=== PATIENT | female | born 1975 | race Caucasian/White ===

== ENCOUNTER 2017-07-08 15:27 | Emergency (ER) | payer OTHER ==
[~2017-07-08] VITALS: Ht 154.9 cm; Wt 90.0 kg
[2017-07-08 16:20] LABS: BASOPHILS # (AUTO) 0.2 X10'3 (0-0.2); BASOPHILS % (AUTO) 1.5 % (0-1); EOSINOPHILS # (AUTO) 0.1 X10'3 (0-0.9); EOSINOPHILS % (AUTO) 0.9 % (0-6); HEMATOCRIT 42.3 % (35.0-45.0); HEMOGLOBIN 14.2 g/dl (12.0-16.0); LYMPHOCYTES % (AUTO) 19.5 % (21-51); MEAN CORPUSCULAR HEMOGLOBIN 29.3 PG (27.0-31.0); MEAN CORPUSCULAR HGB CONC 33.6 % (33.0-36.5); MEAN CORPUSCULAR VOLUME 87.1 FL (78-98); MEAN PLATELET VOLUME 8.2 FL (7.4-10.4); MONOCYTES # (AUTO) 0.6 X10'3 (0-0.9); NEUTROPHILS # (AUTO) 7.2 X10'3 (1.8-7.7); NEUTROPHILS % (AUTO) 72.1 % (42-75); PLATELET COUNT 259 X10'3 (140-440); RED BLOOD COUNT 4.86 X10'6 (4.20-5.60); RED CELL DISTRIBUTION WIDTH 13.7 % (11.5-14.5); WHITE BLOOD COUNT 10.1 X10'3 (4.5-11.0)
[2017-07-08 16:48] LABS: ALANINE AMINOTRANSFERASE 35 U/L (12-78); ALBUMIN 3.8 G/DL (3.4-5.0); ALKALINE PHOSPHATASE 66 IU/L (46-116); ANION GAP 10 (8-16); ASPARTATE AMINO TRANSFERASE 18 U/L (10-37); BILIRUBIN,TOTAL 0.4 MG/DL (0.1-1.0); BLOOD UREA NITROGEN 8 MG/DL (7-18); BUN/CREATININE RATIO 10.4 (6.6-38.0); CHLORIDE 104 MMOL/L (99-107); CREATININE 0.77 MG/DL (0.40-0.90); GLUCOSE 111 MG/DL (70-104); LIPASE 90 U/L (73-393); POTASSIUM 3.4 MMOL/L (3.5-5.1); SODIUM 140 MMOL/L (135-145); TOTAL CARBON DIOXIDE 25.8 MMOL/L (24-32); TOTAL PROTEIN 7.6 G/DL (6.4-8.2); eGFR 83 ML/MIN
[2017-07-08 17:35] VITALS: BP 170/121
== END 2017-07-08 17:44 | disposition home or self-care (01) ==
LOC: ER 15:28
DX: G47.9 Sleep disorder, unspecified (principal); I10 Essential (primary) hypertension; R11.0 Nausea; Z56.0 Unemployment, unspecified
CPT/HCPCS: 36415; 80053; 83690; 85025; 99284

== ENCOUNTER 2020-01-13 04:42 | Inpatient (IN) | payer MEDICAID, OTHER ==
[~2020-01-13] VITALS: Ht 149.9 cm; Wt 97.7 kg
[2020-01-13 05:50] LABS: ALANINE AMINOTRANSFERASE 38 U/L (12-78); ALBUMIN 3.2 G/DL (3.4-5.0); ALBUMIN/GLOBULIN RATIO 0.7 (1.1-1.5); ALKALINE PHOSPHATASE 84 IU/L (46-116); ANION GAP 12 (8-16); ASPARTATE AMINO TRANSFERASE 19 U/L (10-37); BILIRUBIN,TOTAL 0.1 MG/DL (0.1-1.0); BLOOD UREA NITROGEN 11 MG/DL (7-18); BUN/CREATININE RATIO 13.3 (6.6-38.0); CALCIUM 8.9 MG/DL (8.5-10.1); CHLORIDE 105 MMOL/L (99-107); CREATININE 0.83 MG/DL (0.40-0.90); GLUCOSE 205 MG/DL (70-104); POTASSIUM 3.4 MMOL/L (3.5-5.1); SODIUM 139 MMOL/L (135-145); TOTAL CARBON DIOXIDE 21.8 MMOL/L (24-32); TOTAL PROTEIN 7.5 G/DL (6.4-8.2); eGFR 75 ML/MIN
[2020-01-13 05:53] LABS: BASOPHILS # (AUTO) 0.1 X10'3 (0-0.2); BASOPHILS % (AUTO) 0.6 % (0-1); EOSINOPHILS # (AUTO) 0.1 X10'3 (0-0.9); EOSINOPHILS % (AUTO) 0.7 % (0-6); HEMATOCRIT 39.8 % (35.0-45.0); HEMOGLOBIN 13.1 g/dl (12.0-16.0); LYMPHOCYTES # (AUTO) 2.3 X10'3 (1.1-4.8); LYMPHOCYTES % (AUTO) 16.5 % (21-51); MEAN CORPUSCULAR HEMOGLOBIN 28.2 PG (27.0-31.0); MEAN CORPUSCULAR HGB CONC 32.9 g/dL (33.0-36.5); MEAN CORPUSCULAR VOLUME 85.6 FL (78-98); MEAN PLATELET VOLUME 9.6 FL (7.4-10.4); MONOCYTES # (AUTO) 0.4 X10'3 (0-0.9); MONOCYTES % (AUTO) 2.6 % (2-12); NEUTROPHILS # (AUTO) 11.2 X10'3 (1.8-7.7); NEUTROPHILS % (AUTO) 79.6 % (42-75); PLATELET COUNT 255 X10'3 (140-440); RED BLOOD COUNT 4.65 X10'6 (4.20-5.60); RED CELL DISTRIBUTION WIDTH 14.9 % (11.5-14.5); WHITE BLOOD COUNT 14.1 X10'3 (4.5-11.0)
--- NOTE | 2020-01-13 05:58 | NUR ---
Advised Dr. Welch of pt's blood pressure
[2020-01-13] MEDS ORDERED: nitroGLYCERIN 0.4mg/hour patch TD ONE (06:10)
[2020-01-13] MEDS: aspirin 81mg tab.chew PO ONE ×2 (06:19→07:08)
[2020-01-13] MEDS ORDERED: diltiazem-D5W 125mg/125ml 125 ML IV SCH (06:55)
--- NOTE | 2020-01-13 07:08 | NUR ---
pt crying and states, im scared because im so sick. i dont want to . informed dr. torres., please see new orders.
[2020-01-13] MEDS ORDERED: LORazepam 1 MG tablet PO ONE (07:10)
[2020-01-13] MEDS ORDERED: LORazepam 0.5 MG tablet PO ONE (07:20)
[2020-01-13] MEDS: nitroGLYCERIN-Tridil 50MG/D5W 250 ML IV SCH (08:07)
[2020-01-13] MEDS ORDERED: heparin 10,000 units/1 ML INJ IV ONE ×2 (09:10→09:20)
[2020-01-13] MEDS ORDERED: magnesium 4gm in 100ml NS 100 ML IV PRN (09:25)
[2020-01-13] MEDS ORDERED: morphine 2 MG/ML inj. syringe IV PRN ×2 (09:25)
[2020-01-13] MEDS ORDERED: acetaminophen 325mg tablet PO PRN ×2 (09:25)
[2020-01-13] MEDS ORDERED: potassium CL 10mEq/100ml bag 100 ML IV PRN ×2 (09:25)
[2020-01-13] MEDS ORDERED: diphenhydrAMINE 25mg capsule PO PRN (09:25)
[2020-01-13] MEDS ORDERED: mag hydrox/Alum hydrox/simeth 30ml oral suspension PO PRN (09:25)
[2020-01-13] MEDS ORDERED: magnesium Cl slow-release 64mg tablet PO PRN (09:25)
[2020-01-13] MEDS ORDERED: magnesium 2GM in 50ml NS 50 ML IV PRN (09:25)
[2020-01-13] MEDS ORDERED: HYDROcodone/acetaminophen 10/325mg tab PO PRN (09:25)
[2020-01-13] MEDS ORDERED: magnesium hydroxide 30ml (MOM) UD suspension PO PRN (09:25)
[2020-01-13] MEDS ORDERED: acetaminophen 650mg rectal suppository RC PRN (09:25)
[2020-01-13] MEDS ORDERED: potassium Cl 20 mEq SR tablet PO PRN (09:25)
[2020-01-13] MEDS ORDERED: ondansetron/PF 4mg/2ml inj IV PRN (09:25)
[2020-01-13] MEDS ORDERED: HYDROcodone/acetaminophen 5mg/325mg tablet PO PRN (09:25)
[2020-01-13] MEDS ORDERED: bisacodyl 10mg suppository rectal RC PRN (09:25)
[2020-01-13] MEDS: amLODIPine 5mg tablet PO SCH (09:30)
[2020-01-13] MEDS ORDERED: hydrALAZINE 20mg/ml inj. IV PRN (09:30)
[2020-01-13] MEDS ORDERED: hydrALAZINE 20mg/ml inj. IV ONE (09:30)
[2020-01-13] MEDS: heparin 25,000 UNIT/250ml bag 250 ML IV SCH ×2 (09:35→17:04)
[2020-01-13 09:43] LABS: BASOPHILS % (AUTO) 0.3 % (0-1); EOSINOPHILS % (AUTO) 0 % (0-6); HEMATOCRIT 40.4 % (35.0-45.0); HEMOGLOBIN 13.4 g/dl (12.0-16.0); LYMPHOCYTES # (AUTO) 1.2 X10'3 (1.1-4.8); LYMPHOCYTES % (AUTO) 9.4 % (21-51); MEAN CORPUSCULAR HEMOGLOBIN 28.5 PG (27.0-31.0); MEAN CORPUSCULAR HGB CONC 33.1 g/dL (33.0-36.5); MEAN CORPUSCULAR VOLUME 86.2 FL (78-98); MEAN PLATELET VOLUME 8.7 FL (7.4-10.4); MONOCYTES # (AUTO) 0.4 X10'3 (0-0.9); MONOCYTES % (AUTO) 3.4 % (2-12); NEUTROPHILS % (AUTO) 86.9 % (42-75); PLATELET COUNT 279 X10'3 (140-440); RED BLOOD COUNT 4.69 X10'6 (4.20-5.60); RED CELL DISTRIBUTION WIDTH 14.7 % (11.5-14.5); WHITE BLOOD COUNT 12.7 X10'3 (4.5-11.0)
[2020-01-13 09:54] LABS: PARTIAL THROMBOPLASTIN TIME 26 SECONDS (22-32)
--- NOTE | 2020-01-13 09:55 | NUR ---
PT AMBULATED TO BR VOIDED X1, TOLERATED WELL.
[2020-01-13 10:04] LABS: ETHANOL < 0.010 GM/DL (0.0-0.010)
[2020-01-13 10:06] LABS: HEMOGLOBIN A1C 6.3 % (4.5-6.2)
[2020-01-13] MEDS: normal saline 1000ml 1,000 ML IV SCH ×2 (10:20→23:21)
[2020-01-13 10:21] LABS: BETA HCG,QUANTITATIVE < 1.0 mIU/ml
[2020-01-13 10:25] LABS: CLARITY,URINE SLIGHTLY CLOUDY (Clear); COLOR,URINE STRAW (Yellow); GLUCOSE, URINE NEGATIVE (Neg); KETONES,URINE NEGATIVE (Neg); LEUKOCYTE ESTERASE ,URINE NEGATIVE (Neg); NITRITES, URINE NEGATIVE (Neg); OCCULT BLOOD,URINE NEGATIVE (Neg); PH,URINE 6.5 (4.8-8.0); PROTEIN,URINE NEGATIVE (Neg); UROBILINOGEN,URINE 0.2 E.U/dL (0.2-1.0)
[2020-01-13 10:28] LABS: URINE AMPHETAMINE SCREEN NEGATIVE (Neg); URINE BARBITUATE SCREEN NEGATIVE (Neg); URINE BENZODIAZEPINES SCREEN NEGATIVE (Neg); URINE CANNABINOID SCREEN POSITIVE (Neg); URINE COCAINE SCREEN NEGATIVE (Neg); URINE METHADONE SCREEN NEGATIVE (Neg); URINE OPIATE SCREEN NEGATIVE (Neg); URINE PHENCYCLIDINE SCREEN NEGATIVE (Neg)
[2020-01-13] MEDS ORDERED: iohexol 350MG/ML 100ml bottle IV ONE (10:31)
[2020-01-13 10:34] LABS: UA COLLECTION TYPE CLN CATCH MIDSTREAM
[2020-01-13 10:37] LABS: MUCUS STRANDS FEW /LPF (Neg); SQUAMOUS EPITHELIAL CELL,UR MANY /LPF (FEW)
[2020-01-13 10:44] LABS: BACTERIA,URINE 1+ /HPF (Neg); RBC,URINE 0-2 /HPF (0-2); WBC,URINE 0-4 /HPF (0-4)
--- NOTE | 2020-01-13 11:12 | NUR ---
back from ct scan in stable condition
[2020-01-13] MEDS: metoprolol succinate 25mg (24-HOUR) SR. Tablet PO SCH (11:43)
--- NOTE | 2020-01-13 12:29 | NUR ---
PT C/O HEREDIA AND SLIGHT CP MEDIAL CHEST. MS 2MG IV GIVEN
[2020-01-13] MEDS ORDERED: VENL100T4 PO (12:36)
[2020-01-13] MEDS ORDERED: OMEP40CA13 PO (12:36)
[2020-01-13] MEDS ORDERED: VALS40TA11 PO (12:36)
--- NOTE | 2020-01-13 15:39 | NUR ---
Patient in room ED 8. I have received report from Mary FRANCIS and had the opportunity to ask questions and assume patient care.
[2020-01-13 16:15] VITALS: BP 145/75
[2020-01-13] MEDS: heparin 10,000 units/1 ML INJ IV PRN (17:02)
--- NOTE | 2020-01-13 17:40 | NUR ---
Page Sent promotional table spacer PAGER ID: [phone] MESSAGE: Fredy Encarnacion. Critical lab 12 hour Trop 5.96. Fatmata [id number]
--- NOTE | 2020-01-13 17:48 | NUR ---
notified Dr. Gracia of critical trop through his answering service by request of Dr. Cooper.
[2020-01-13 18:00] VITALS: BP 150/90
--- NOTE | 2020-01-13 18:35 | NUR ---
Problems reprioritized. Patient report given, questions answered & plan of care reviewed with Katlyn FRANCIS.
--- NOTE | 2020-01-13 19:30 | NUR ---
Patient in room PCU 3014. I have received report from Fatmata FRANCIS and had the opportunity to ask questions and assume patient care.
[2020-01-13] MEDS ORDERED: atorvastatin 20mg tablet PO ONE (19:55)
[2020-01-13 20:00] VITALS: BP 197/116
[2020-01-13] MEDS: potassium Cl 20 mEq SR tablet PO PRN (20:45)
[2020-01-13] MEDS: venlafaxine 25mg tablet PO SCH (20:46)
[2020-01-13] MEDS: K and/or MAG REPLACEMENT MC SCH (20:46)
[2020-01-13 22:00] VITALS: BP 160/99
--- NOTE | 2020-01-13 22:50 | NUR ---
Patient in room PCU 3014. I have received report from Shi FRANCIS and had the opportunity to ask questions and assume patient care.
--- NOTE | 2020-01-13 23:08 | NUR ---
Problems reprioritized. Patient report given, questions answered & plan of care reviewed with Jozef FRANCIS.
[2020-01-14] VITALS (24 sets, daily range): BP systolic 138–225; BP diastolic 77–121
[2020-01-14] MEDS: potassium Cl 20 mEq SR tablet PO PRN (02:29)
--- NOTE | 2020-01-14 06:07 | NUR ---
Problems reprioritized. Patient report given, questions answered & plan of care reviewed with Koki FRANCIS.
[2020-01-14 06:19] LABS: BASOPHILS # (AUTO) 0.1 X10'3 (0-0.2); BASOPHILS % (AUTO) 0.8 % (0-1); EOSINOPHILS % (AUTO) 0.2 % (0-6); HEMOGLOBIN 12.3 g/dl (12.0-16.0); LYMPHOCYTES # (AUTO) 2.9 X10'3 (1.1-4.8); LYMPHOCYTES % (AUTO) 20.4 % (21-51); MEAN CORPUSCULAR HGB CONC 32.4 g/dL (33.0-36.5); MEAN CORPUSCULAR VOLUME 86.4 FL (78-98); MEAN PLATELET VOLUME 8.9 FL (7.4-10.4); MONOCYTES # (AUTO) 0.8 X10'3 (0-0.9); MONOCYTES % (AUTO) 5.8 % (2-12); NEUTROPHILS # (AUTO) 10.3 X10'3 (1.8-7.7); NEUTROPHILS % (AUTO) 72.8 % (42-75); PLATELET COUNT 263 X10'3 (140-440); RED CELL DISTRIBUTION WIDTH 14.6 % (11.5-14.5); WHITE BLOOD COUNT 14.1 X10'3 (4.5-11.0)
--- NOTE | 2020-01-14 06:39 | NUR ---
Patient in room PCU 3014. I have received report from TITO Haskins and had the opportunity to ask questions and assume patient care. Patient asleep in bed and in no acute distress.
[2020-01-14 06:47] LABS: ALANINE AMINOTRANSFERASE 33 U/L (12-78); ALBUMIN 3.2 G/DL (3.4-5.0); ALBUMIN/GLOBULIN RATIO 0.8 (1.1-1.5); ALKALINE PHOSPHATASE 74 IU/L (46-116); ANION GAP 11 (8-16); ASPARTATE AMINO TRANSFERASE 39 U/L (10-37); BILIRUBIN,TOTAL 0.3 MG/DL (0.1-1.0); BLOOD UREA NITROGEN 6 MG/DL (7-18); BUN/CREATININE RATIO 10.2 (6.6-38.0); CALCIUM 8.3 MG/DL (8.5-10.1); CHLORIDE 107 MMOL/L (99-107); CHOL/HDL RATIO 5.6 (0.00-4.99); CHOLESTEROL 218 MG/DL (0-200); CREATININE 0.59 MG/DL (0.40-0.90); GLUCOSE 121 MG/DL (70-104); HDL CHOLESTEROL 39 MG/DL (35-60); LDL CHOLESTEROL 154 MG/DL (50-100); PHOSPHORUS 2.9 MG/DL (2.3-4.5); POTASSIUM 3.9 MMOL/L (3.5-5.1); SODIUM 139 MMOL/L (135-145); TOTAL CARBON DIOXIDE 21.3 MMOL/L (24-32); TOTAL PROTEIN 7.4 G/DL (6.4-8.2); TRIGLYCERIDES 246 MG/DL (20-135); eGFR > 90 ML/MIN
[2020-01-14] MEDS: aspirin 81mg tablet.DR PO SCH (07:51)
[2020-01-14] MEDS: losartan 25mg tablet PO SCH (07:51)
[2020-01-14] MEDS: pantoprazole 40mg Tablet.DR PO SCH (07:52)
[2020-01-14] MEDS: amLODIPine 5mg tablet PO SCH (07:52)
[2020-01-14] MEDS: metoprolol succinate 25mg (24-HOUR) SR. Tablet PO SCH (07:53)
[2020-01-14] MEDS: atorvastatin 20mg tablet PO SCH (07:54)
[2020-01-14] MEDS: K and/or MAG REPLACEMENT MC SCH ×2 (07:55→20:00)
[2020-01-14] MEDS: venlafaxine 25mg tablet PO SCH ×2 (07:55→21:33)
[2020-01-14] MEDS: normal saline 1000ml 1,000 ML IV SCH ×2 (12:05→23:46)
[2020-01-14] MEDS ORDERED: fentaNYL/PF 50MCG/1 ML 2ML syringe ONE (12:25)
[2020-01-14] MEDS ORDERED: nitroGLYCERIN-Tridil 50MG/D5W 250 ML IV ONE (12:25)
[2020-01-14] MEDS ORDERED: verapamil 2.5 mg/ml inj IV ONE (12:25)
[2020-01-14] MEDS ORDERED: iohexol 350 MG/ML 50ML vial IV ONE ×2 (12:25→15:12)
[2020-01-14] MEDS ORDERED: midazolam 2 mg/2 ml injection ONE ×2 (12:25→14:45)
[2020-01-14] MEDS ORDERED: LIDOcaine 1% (10mg/ml)w/preservative injection 20ml MDV ONE (12:25)
[2020-01-14] MEDS ORDERED: heparin 1,000unit/ml 10ml vial 10 ML ONE (12:25)
[2020-01-14] MEDS ORDERED: iohexol 350MG/ML 100ml bottle IV ONE ×3 (12:25→14:27)
--- NOTE | 2020-01-14 13:05 | NUR ---
Patient down for cath.
[2020-01-14] MEDS ORDERED: heparin 1,000 UNITS/NS 500ml 500 ML ONE ×2 (14:47→14:48)
[2020-01-14] MEDS ORDERED: clopidogrel 300mg tablet ONE (15:45)
[2020-01-14] MEDS ORDERED: CLOPIDOGREL BISULFATE 300MG TAB PO ONE ×2 (17:05→17:10)
[2020-01-14] MEDS ORDERED: aspirin 81mg tab.chew PO ONE (17:05)
[2020-01-14] MEDS ORDERED: aspirin 325mg tablet PO ONE (17:05)
--- NOTE | 2020-01-14 18:13 | NUR ---
Problems reprioritized. Patient report given, questions answered & plan of care reviewed with TITO Barrera on ACCE. Patient going to [facility]E to room 307 at transfer of care.
--- NOTE | 2020-01-14 18:26 | NUR ---
Problems reprioritized. Patient report given, questions answered & plan of care reviewed with Holly RN, VSS, pt's Chencho lynne CDI, pt is in stable condition, taking pt to [facility] rm #307.
--- NOTE | 2020-01-14 18:30 | NUR ---
pt transferred to [facility] rm#307, VSS, pt is in stable condition, TITO Barrera at pt's bedside.
--- NOTE | 2020-01-14 20:34 | NUR ---
Called Dr. Gracia's office and left a message regarding the patient's Art line Systolic blood pressure being in 190's/100's. Waiting for call back. Addendum: 01/14/20 at 2055 by Holly Jasso RN Dr. Gracia called back and ordered Hydralazine 15 mg IV Q4h PRN for SBP greater than 160. Metoprolol 50mg PO BID. and Metoprolol 50mg PO once now. First give Hydralazine 15m IV, then if the SBP greater than 160, give metoprolol 50mg po once. If the SBP still above 160, then Hydralazine 15mg IV Q4h for SBP greater than 160 throughout the night.
[2020-01-14] MEDS ORDERED: metoprolol succinate 25mg (24-HOUR) SR. Tablet PO ONE (20:50)
[2020-01-14] MEDS: hydrALAZINE 20mg/ml inj. IV PRN (21:34)
[2020-01-14] MEDS: heparin 10,000 units/1 ML INJ IV PRN (22:34)
[2020-01-15] VITALS (7 sets, daily range): BP systolic 146–186; BP diastolic 87–101
[2020-01-15] MEDS: hydrALAZINE 20mg/ml inj. IV PRN (01:50)
[2020-01-15] MEDS: heparin 25,000 UNIT/250ml bag 250 ML IV SCH ×2 (01:53→06:13)
[2020-01-15 05:51] LABS: BASOPHILS % (AUTO) 0.2 % (0-1); EOSINOPHILS % (AUTO) 0.1 % (0-6); HEMATOCRIT 36.5 % (35.0-45.0); LYMPHOCYTES # (AUTO) 1.6 X10'3 (1.1-4.8); LYMPHOCYTES % (AUTO) 11.6 % (21-51); MEAN CORPUSCULAR HEMOGLOBIN 28.3 PG (27.0-31.0); MEAN CORPUSCULAR VOLUME 85.7 FL (78-98); MEAN PLATELET VOLUME 9.1 FL (7.4-10.4); NEUTROPHILS # (AUTO) 11.4 X10'3 (1.8-7.7); NEUTROPHILS % (AUTO) 81.1 % (42-75); PLATELET COUNT 290 X10'3 (140-440); RED BLOOD COUNT 4.26 X10'6 (4.20-5.60); RED CELL DISTRIBUTION WIDTH 14.8 % (11.5-14.5); WHITE BLOOD COUNT 14.1 X10'3 (4.5-11.0)
[2020-01-15] MEDS ORDERED: nitroGLYCERIN-Tridil 50MG/D5W 250 ML IV ONE (06:01)
[2020-01-15] MEDS ORDERED: iohexol 350 MG/1 ML 200ml bottle ONE (06:02)
[2020-01-15] MEDS ORDERED: midazolam 2 mg/2 ml injection ONE (06:02)
[2020-01-15] MEDS ORDERED: LIDOcaine 1% (10mg/ml)w/preservative injection 20ml MDV ONE (06:02)
[2020-01-15] MEDS ORDERED: fentaNYL/PF 50MCG/1 ML 2ML syringe ONE (06:02)
[2020-01-15] MEDS ORDERED: heparin 1,000unit/ml 10ml vial 10 ML ONE (06:02)
[2020-01-15 06:12] LABS: ALANINE AMINOTRANSFERASE 30 U/L (12-78); ALBUMIN/GLOBULIN RATIO 0.7 (1.1-1.5); ALKALINE PHOSPHATASE 72 IU/L (46-116); ANION GAP 11 (8-16); ASPARTATE AMINO TRANSFERASE 24 U/L (10-37); BILIRUBIN,TOTAL 0.4 MG/DL (0.1-1.0); BLOOD UREA NITROGEN 7 MG/DL (7-18); BUN/CREATININE RATIO 10.8 (6.6-38.0); CALCIUM 7.8 MG/DL (8.5-10.1); CHLORIDE 106 MMOL/L (99-107); CHOL/HDL RATIO 4.7 (0.00-4.99); CHOLESTEROL 189 MG/DL (0-200); CREATININE 0.65 MG/DL (0.40-0.90); GLUCOSE 116 MG/DL (70-104); HDL CHOLESTEROL 40 MG/DL (35-60); LDL CHOLESTEROL 132 MG/DL (50-100); PHOSPHORUS 2.8 MG/DL (2.3-4.5); POTASSIUM 3.4 MMOL/L (3.5-5.1); SODIUM 139 MMOL/L (135-145); TOTAL CARBON DIOXIDE 22.4 MMOL/L (24-32); TOTAL PROTEIN 7.1 G/DL (6.4-8.2); TRIGLYCERIDES 150 MG/DL (20-135); eGFR > 90 ML/MIN
--- NOTE | 2020-01-15 06:25 | NUR ---
Problems reprioritized. Patient report given, questions answered & plan of care reviewed with Dina.
--- NOTE | 2020-01-15 06:39 | NUR ---
Patient in room MED 307. I have received report from TITO COWART and had the opportunity to ask questions and assume patient care.
[2020-01-15] MEDS ORDERED: iohexol 350 MG/ML 50ML vial IV ONE ×2 (07:43→08:05)
[2020-01-15] MEDS: nitroGLYCERIN-Tridil 50MG/D5W 250 ML IV SCH (07:50)
[2020-01-15] MEDS ORDERED: metoprolol succinate 25mg (24-HOUR) SR. Tablet PO SCH (08:00)
[2020-01-15] MEDS ORDERED: atorvastatin 20mg tablet PO SCH ×2 (08:00→21:00)
[2020-01-15] MEDS: aspirin 81mg tablet.DR PO SCH (08:00)
[2020-01-15] MEDS: K and/or MAG REPLACEMENT MC SCH ×2 (08:00→20:00)
[2020-01-15] MEDS: clopidogrel 75mg tablet PO SCH (08:00)
[2020-01-15] MEDS: atorvastatin 20mg tablet PO SCH (08:00)
[2020-01-15] MEDS ORDERED: clopidogrel 300mg tablet ONE (08:07)
[2020-01-15] MEDS ORDERED: aspirin 325mg tablet PO SCH (08:30)
[2020-01-15] MEDS: amLODIPine 5mg tablet PO SCH (09:26)
[2020-01-15] MEDS: metoprolol succinate 25mg (24-HOUR) SR. Tablet PO SCH ×2 (09:26→21:17)
[2020-01-15] MEDS: aspirin 81mg tab.chew PO SCH (09:26)
[2020-01-15] MEDS: losartan 25mg tablet PO SCH (09:26)
[2020-01-15] MEDS: pantoprazole 40mg Tablet.DR PO SCH (09:27)
[2020-01-15] MEDS: venlafaxine 25mg tablet PO SCH ×2 (09:27→21:17)
[2020-01-15] MEDS: potassium Cl 20 mEq SR tablet PO PRN ×3 (09:27→22:08)
[2020-01-15] MEDS: normal saline 1000ml 1,000 ML IV SCH ×2 (09:28→21:17)
--- NOTE | 2020-01-15 11:35 | NUR ---
DR. ROBERTO AT BEDSIDE, NEW ORDER RECEIVED, DECREASE NITRO TO 20 MCG/KG/MIN
--- NOTE | 2020-01-15 12:00 | NUR ---
DR. ROBERTO NOTIFIED OF DECREASING BP, NEW ORDER RECEIVED: NITRO @ 10MCG/KG/MIN
[2020-01-16] VITALS: BP 158/102
[2020-01-16 02:15] VITALS: BP 165/99
[2020-01-16 03:36] VITALS: BP 178/111
[2020-01-16 04:00] VITALS: BP 155/95
[2020-01-16] MEDS: hydrALAZINE 20mg/ml inj. IV PRN (04:01)
[2020-01-16] MEDS: normal saline 1000ml 1,000 ML IV SCH (05:17)
[2020-01-16 06:00] VITALS: BP 133/84
[2020-01-16 06:24] LABS: BASOPHILS # (AUTO) 0.1 X10'3 (0-0.2); BASOPHILS % (AUTO) 0.4 % (0-1); EOSINOPHILS % (AUTO) 0.3 % (0-6); LYMPHOCYTES # (AUTO) 1.7 X10'3 (1.1-4.8); LYMPHOCYTES % (AUTO) 11.6 % (21-51); MEAN CORPUSCULAR HEMOGLOBIN 28.8 PG (27.0-31.0); MEAN CORPUSCULAR HGB CONC 33.4 g/dL (33.0-36.5); MEAN CORPUSCULAR VOLUME 86.1 FL (78-98); MEAN PLATELET VOLUME 8.7 FL (7.4-10.4); MONOCYTES # (AUTO) 0.9 X10'3 (0-0.9); NEUTROPHILS # (AUTO) 11.7 X10'3 (1.8-7.7); NEUTROPHILS % (AUTO) 81.7 % (42-75); PLATELET COUNT 263 X10'3 (140-440); RED BLOOD COUNT 4.18 X10'6 (4.20-5.60); RED CELL DISTRIBUTION WIDTH 14.6 % (11.5-14.5); WHITE BLOOD COUNT 14.3 X10'3 (4.5-11.0)
--- NOTE | 2020-01-16 06:25 | NUR ---
Problems reprioritized. Patient report given, questions answered & plan of care reviewed with Dina.
[2020-01-16 06:35] LABS: ALANINE AMINOTRANSFERASE 32 U/L (12-78); ALBUMIN/GLOBULIN RATIO 0.7 (1.1-1.5); ALKALINE PHOSPHATASE 75 IU/L (46-116); ANION GAP 12 (8-16); ASPARTATE AMINO TRANSFERASE 47 U/L (10-37); BILIRUBIN,TOTAL 0.6 MG/DL (0.1-1.0); BLOOD UREA NITROGEN 8 MG/DL (7-18); BUN/CREATININE RATIO 14.3 (6.6-38.0); CHLORIDE 106 MMOL/L (99-107); CREATININE 0.56 MG/DL (0.40-0.90); GLUCOSE 121 MG/DL (70-104); MAGNESIUM 2.1 MG/DL (1.5-2.4); PHOSPHORUS 2.1 MG/DL (2.3-4.5); POTASSIUM 3.8 MMOL/L (3.5-5.1); SODIUM 138 MMOL/L (135-145); TOTAL CARBON DIOXIDE 19.6 MMOL/L (24-32); TOTAL PROTEIN 7.2 G/DL (6.4-8.2); eGFR > 90 ML/MIN
[2020-01-16] MEDS: pantoprazole 40mg Tablet.DR PO SCH (08:41)
[2020-01-16] MEDS: venlafaxine 25mg tablet PO SCH (08:41)
[2020-01-16] MEDS: aspirin 81mg tab.chew PO SCH (08:41)
[2020-01-16] MEDS: metoprolol succinate 25mg (24-HOUR) SR. Tablet PO SCH (08:42)
[2020-01-16] MEDS: amLODIPine 5mg tablet PO SCH (08:42)
[2020-01-16] MEDS: losartan 25mg tablet PO SCH (08:42)
[2020-01-16] MEDS: clopidogrel 75mg tablet PO SCH (08:43)
--- NOTE | 2020-01-16 09:44 | NUR ---
DR. ROBERTO PAGED: PAGER ID: [phone] MESSAGE: [phone]: HUNTER pascual at bedside, turned off Nitro, pressures stable at 133/84. samara said she good to go with med optimization :D Nurse Nya [id number]
[2020-01-16] MEDS ORDERED: CLOP75TA35 PO (10:22)
[2020-01-16] MEDS ORDERED: METO100T7 PO (10:22)
[2020-01-16] MEDS ORDERED: ATOR20TA66 PO (10:22)
[2020-01-16] MEDS ORDERED: ASPI-1265 PO (10:22)
[2020-01-16] MEDS ORDERED: NOR5T PO (10:22)
[2020-01-16 11:00] VITALS: BP 150/103
== END 2020-01-16 12:15 | disposition home or self-care (01) | DRG 174 ==
LOC: ER 04:43 → ED HOLD 09:21 → PCU 3S 16:00 → MED 3N 01-14 18:35
PROVIDERS: ADMIT Family Medicine; ATTEND Family Medicine
PROC: 4A023N7 Measurement of Cardiac Sampling and Pressure, Left Heart, Percutaneous Approach (ICD-10-PCS; principal; 2020-01-14)
PROC: B2111ZZ Fluoroscopy of Multiple Coronary Arteries using Low Osmolar Contrast (ICD-10-PCS; 2020-01-14)
PROC: B2151ZZ Fluoroscopy of Left Heart using Low Osmolar Contrast (ICD-10-PCS; 2020-01-14)
PROC: 027135Z Dilation of Coronary Artery, Two Arteries with Two Drug-eluting Intraluminal Devices, Percutaneous Approach (ICD-10-PCS; 2020-01-14)
PROC: 027135Z Dilation of Coronary Artery, Two Arteries with Two Drug-eluting Intraluminal Devices, Percutaneous Approach (ICD-10-PCS; 2020-01-15)
DX: I21.4 Non-ST elevation (NSTEMI) myocardial infarction (principal); E78.5 Hyperlipidemia, unspecified; F12.90 Cannabis use, unspecified, uncomplicated; F17.210 Nicotine dependence, cigarettes, uncomplicated; F32.9 Major depressive disorder, single episode, unspecified; F41.9 Anxiety disorder, unspecified; G47.30 Sleep apnea, unspecified; I10 Essential (primary) hypertension; I16.1 Hypertensive emergency; Z79.899 Other long term (current) drug therapy; Z83.3 Family history of diabetes mellitus; E66.01 Morbid (severe) obesity due to excess calories; Z68.41 Body mass index [BMI] 40.0-44.9, adult
CPT/HCPCS: 36415; 71045; 71275; 76937; 80053; 80061; 80305; 80320; 81001; 83036; 83735; 83880; 84100; 84443; 84484; 84702; 85025; 85347; 85610; 85730; 87081; 92920; 93005; 93306; 93308; 93458; 96365; 99152; 99153; 99285; A4620; A5120; A6258; C1725; C1751; C1769; C1874; C1894; C9600; C9601; G0378; J0360; J1644; J2001; J2250; J2270; J3010; J3490; J7030; Q9967

== ENCOUNTER 2022-02-14 12:08 | Inpatient (IN) | payer MEDICAID ==
[~2022-02-14] VITALS: Ht 157.5 cm; Wt 72.7 kg
[~2022-02-14 12:08] MED LIST: ASPI-1265 PO; ATOR20TA66 PO; CLOP75TA34 PO; NOR5T PO; OMEP40CA21 PO; VALS40TA11 PO; VENL100T4 PO
[2022-02-14 12:43] LABS: BASOPHILS % (AUTO) 0.5 % (0-1); EOSINOPHILS # (AUTO) 0.1 X10'3 (0-0.9); EOSINOPHILS % (AUTO) 0.7 % (0-6); HEMATOCRIT 42.6 % (35.0-45.0); LYMPHOCYTES # (AUTO) 2.3 X10'3 (1.1-4.8); LYMPHOCYTES % (AUTO) 23.5 % (21-51); MEAN CORPUSCULAR HEMOGLOBIN 28.6 PG (27.0-31.0); MEAN CORPUSCULAR HGB CONC 32.8 g/dL (33.0-36.5); MEAN CORPUSCULAR VOLUME 87.2 FL (78-98); MEAN PLATELET VOLUME 8.1 FL (7.4-10.4); MONOCYTES # (AUTO) 0.6 X10'3 (0-0.9); MONOCYTES % (AUTO) 6.6 % (2-12); NEUTROPHILS # (AUTO) 6.6 X10'3 (1.8-7.7); NEUTROPHILS % (AUTO) 68.7 % (42-75); PLATELET COUNT 309 X10'3 (140-440); RED BLOOD COUNT 4.88 X10'6 (4.20-5.60); RED CELL DISTRIBUTION WIDTH 14.9 % (11.5-14.5); WHITE BLOOD COUNT 9.6 X10'3 (4.5-11.0)
[2022-02-14 12:44] LABS: ALANINE AMINOTRANSFERASE 29 U/L (12-78); ALKALINE PHOSPHATASE 52 IU/L (46-116); ANION GAP 10 (8-16); ASPARTATE AMINO TRANSFERASE 15 U/L (10-37); BILIRUBIN,TOTAL 0.2 MG/DL (0.1-1.0); BLOOD UREA NITROGEN 13 MG/DL (7-18); BUN/CREATININE RATIO 17.1 (6.6-38.0); CALCIUM 8.5 MG/DL (8.5-10.1); CHLORIDE 104 MMOL/L (99-107); CREATININE 0.76 MG/DL (0.40-0.90); GLUCOSE 91 MG/DL (70-104); MAGNESIUM 1.7 MG/DL (1.5-2.4); POTASSIUM 3.6 MMOL/L (3.5-5.1); SODIUM 140 MMOL/L (135-145); TOTAL CARBON DIOXIDE 26.1 MMOL/L (24-32); TOTAL PROTEIN 8.1 G/DL (6.4-8.2); eGFR 83 ML/MIN
[2022-02-14] MEDS ORDERED: nitroGLYCERIN 0.4mg SUBLingual tab SL PRN ×2 (13:10→13:55)
[2022-02-14] MEDS ORDERED: metoprolol tartrate 50mg tablet PO ONE (13:10)
[2022-02-14] MEDS ORDERED: aspirin 81mg tab.chew PO ONE (13:10)
[2022-02-14] MEDS ORDERED: nitroGLYCERIN 0.4mg/hour patch TD ONE (13:35)
[2022-02-14] MEDS ORDERED: magnesium Cl slow-release 64mg tablet PO PRN (13:55)
[2022-02-14] MEDS ORDERED: potassium Cl 20 mEq SR tablet PO PRN ×2 (13:55)
[2022-02-14] MEDS ORDERED: magnesium 4gm in 100ml NS 100 ML IV PRN (13:55)
[2022-02-14] MEDS ORDERED: metoprolol tartrate 1mg/ml inj IV PRN (13:55)
[2022-02-14] MEDS ORDERED: ondansetron/PF 4mg/2ml inj IV PRN (13:55)
[2022-02-14] MEDS ORDERED: aminophylline 250mg/10ml inj. IV PRN (13:55)
[2022-02-14] MEDS ORDERED: PERFLUTREN PROTEIN-A MICROSPHR (Optison) 0.22 MG/ML 3ML VIAL IV ONE (13:55)
[2022-02-14] MEDS ORDERED: magnesium hydroxide 30ml (MOM) UD suspension PO PRN (13:55)
[2022-02-14] MEDS ORDERED: morphine 2 MG/ML inj. syringe IV PRN ×2 (13:55)
[2022-02-14] MEDS ORDERED: potassium Cl 40MEQ/1/2NS 520ml 520 ML IV PRN (13:55)
[2022-02-14] MEDS ORDERED: mag hydrox/Alum hydrox/simeth 30ml oral suspension PO PRN (13:55)
[2022-02-14 14:59] LABS: MAGNESIUM 1.8 MG/DL (1.5-2.4); POTASSIUM 3.7 MMOL/L (3.5-5.1)
[2022-02-14] MEDS: hydrALAZINE 20mg/ml inj. IV PRN (15:31)
[2022-02-14] MEDS ORDERED: CITA20TA28 PO (16:01)
[2022-02-14] MEDS ORDERED: ASPI-611 PO (16:01)
[2022-02-14] MEDS ORDERED: CHLO25TA10 PO (16:01)
[2022-02-14] MEDS ORDERED: VALS320T17 PO (16:01)
[2022-02-14] MEDS ORDERED: HYDR-3686 PO (16:01)
[2022-02-14 18:00] VITALS: BP 145/86
--- NOTE | 2022-02-14 18:47 | NUR ---
Pt arrived on unit at 1750. Applied telemetry and obtained VS. 149/95, HR 70, 97% O2.
[2022-02-14] MEDS: acetaminophen 325mg tablet PO PRN (19:32)
[2022-02-14] MEDS: docusate sod 100mg capsule PO SCH (19:32)
[2022-02-14] MEDS: enoxaparin 30mg/0.3ml syringe SQ SCH (19:34)
[2022-02-14] MEDS: amLODIPine 5mg tablet PO SCH (19:34)
[2022-02-14] MEDS: carvedilol 6.25mg tablet PO SCH (19:35)
[2022-02-14] MEDS: normal saline 1000ml 1,000 ML IV SCH ×2 (19:38→23:55)
[2022-02-14] MEDS: K and/or MAG REPLACEMENT MC SCH (20:00)
[2022-02-14 22:00] VITALS: BP 143/93
[2022-02-15] VITALS (15 sets, daily range): BP systolic 142–200; BP diastolic 91–123
[2022-02-15] MEDS: acetaminophen 325mg tablet PO PRN (02:56)
--- NOTE | 2022-02-15 06:42 | NUR ---
Problems reprioritized. Patient report given, questions answered & plan of care reviewed with PAUL FRANCIS.
[2022-02-15 07:03] LABS: BASOPHILS % (AUTO) 0.2 % (0-1); EOSINOPHILS % (AUTO) 0.1 % (0-6); HEMOGLOBIN 12.9 g/dl (12.0-16.0); LYMPHOCYTES # (AUTO) 1.5 X10'3 (1.1-4.8); MEAN CORPUSCULAR HEMOGLOBIN 28.7 PG (27.0-31.0); MEAN CORPUSCULAR VOLUME 86.8 FL (78-98); MEAN PLATELET VOLUME 8.1 FL (7.4-10.4); MONOCYTES # (AUTO) 0.7 X10'3 (0-0.9); MONOCYTES % (AUTO) 5.2 % (2-12); NEUTROPHILS # (AUTO) 11.5 X10'3 (1.8-7.7); NEUTROPHILS % (AUTO) 83.5 % (42-75); PLATELET COUNT 286 X10'3 (140-440); RED BLOOD COUNT 4.49 X10'6 (4.20-5.60); RED CELL DISTRIBUTION WIDTH 14.5 % (11.5-14.5); WHITE BLOOD COUNT 13.7 X10'3 (4.5-11.0)
[2022-02-15] MEDS: K and/or MAG REPLACEMENT MC SCH (08:00)
[2022-02-15] MEDS: docusate sod 100mg capsule PO SCH (08:00)
[2022-02-15] MEDS ORDERED: aspirin 81mg, enteric-coated 1 TAB TABLET.DR PO SCH (08:00)
[2022-02-15 08:08] LABS: ALBUMIN 3.4 G/DL (3.4-5.0); ANION GAP 11 (8-16); BLOOD UREA NITROGEN 6 MG/DL (7-18); BUN/CREATININE RATIO 9.2 (6.6-38.0); CALCIUM 7.8 MG/DL (8.5-10.1); CHLORIDE 104 MMOL/L (99-107); CREATININE 0.65 MG/DL (0.40-0.90); GLUCOSE 118 MG/DL (70-104); MAGNESIUM 1.8 MG/DL (1.5-2.4); POTASSIUM 3.5 MMOL/L (3.5-5.1); SODIUM 139 MMOL/L (135-145); TOTAL CARBON DIOXIDE 23.9 MMOL/L (24-32); eGFR > 90 ML/MIN
[2022-02-15] MEDS: enoxaparin 30mg/0.3ml syringe SQ SCH (08:24)
[2022-02-15] MEDS: amLODIPine 5mg tablet PO SCH (08:24)
[2022-02-15] MEDS: carvedilol 6.25mg tablet PO SCH (08:24)
[2022-02-15] MEDS: regadenoson 0.4mg/5ml syringe IV PRN ×2 (09:19→11:05)
--- NOTE | 2022-02-15 09:36 | NUR ---
report given to Alec FRANCIS regarding BP, stress test on hold for now. Nurse will contact hospitalist. Pt going back to room
[2022-02-15] MEDS ORDERED: LORazepam 2 mg/ml vial IV ONE (09:40)
--- NOTE | 2022-02-15 14:12 | NUR ---
PAGED DR. VERNON REGARDING PATIENT'S STRESS TEST BEING RESULTED. PAGER ID: [phone] MESSAGE: [phone]. MARKELL HARRISON. STRESS TEST HAS RESULTED. THANK YOU. ERIN FRANCIS X [phone]
[2022-02-15] MEDS: hydrALAZINE 20mg/ml inj. IV PRN (15:31)
[2022-02-15] MEDS ORDERED: CHLO25TA10 PO (15:41)
[2022-02-15] MEDS ORDERED: CARV6.253 PO (15:41)
[2022-02-15] MEDS ORDERED: VALS320T17 PO (15:41)
--- NOTE | 2022-02-15 17:26 | NUR ---
Pt was DC'd as per 's orders. All IV's and tele was unhooked. Education was provided to pt and daughter. All questions were answered and pt felt comfortable going home. Medications were sent to preferred pharmacy, and pt said they would pick them up today. Pt was dc'd to home. I wheeled pt down to lobby in a wheelchair and pt drove themself while being followed by their daughter. Pt will make follow up appointment with provider within the week.
== END 2022-02-15 16:11 | disposition home or self-care (01) | DRG 198 ==
LOC: ER 12:09 → ED HOLD 13:57 → PCU 3S 17:50
PROVIDERS: ADMIT Family Medicine; ATTEND Family Medicine
PROC: 4A02XM4 Measurement of Cardiac Total Activity, External Approach (ICD-10-PCS; principal; 2022-02-15)
PROC: 3E033HZ Introduction of Radioactive Substance into Peripheral Vein, Percutaneous Approach (ICD-10-PCS; 2022-02-15)
DX: I25.119 Atherosclerotic heart disease of native coronary artery with unspecified angina pectoris (principal); E66.9 Obesity, unspecified; I16.0 Hypertensive urgency; E78.5 Hyperlipidemia, unspecified; F17.210 Nicotine dependence, cigarettes, uncomplicated; G47.30 Sleep apnea, unspecified; I10 Essential (primary) hypertension; I25.2 Old myocardial infarction; Z56.0 Unemployment, unspecified; Z68.29 Body mass index [BMI] 29.0-29.9, adult; Z79.899 Other long term (current) drug therapy; Z71.6 Tobacco abuse counseling
CPT/HCPCS: 36415; 71045; 78452; 80048; 80053; 83735; 83880; 84132; 84484; 85025; 87081; 93005; 93017; 99285; A9500; G0378; J0360; J1650; J2060; J2785; J7030